=== PATIENT | male | born 1940 | race Caucasian/White ===

== ENCOUNTER 2016-10-22 20:25 | Inpatient (IN) | payer OTHER, MEDICARE ==
[~2016-10-22] VITALS: Ht 170.2 cm; Wt 70.3 kg
--- NOTE | 2016-10-22 20:38 | NUR ---
PER PT DRINKING ON AND OFF SINCE JULY LAST NIGHT DRINKING AND FELL HIT HEAD AND MY BP IS UP DENIES LOC BUT PER FAMILY HE DOES NOT REMEMBER INCIDENT LAST DRINK SOME WINE THIS AM DENIES HI/SI
--- NOTE | 2016-10-22 20:40 | NUR ---
PER PT DENIES SZ WITH DETOX, DENIES DRUG USE
[2016-10-22 20:53] LABS: ABSOLUTE BASOPHIL COUNT 0 /CUMM (0.0-0.2); ABSOLUTE EOSINOPHIL COUNT 0 /CUMM (0.0-0.7); ABSOLUTE GRANULOCYTE CT 7.1 /CUMM (1.4-6.5); ABSOLUTE LYMPH COUNT 1.3 /CUMM (1.2-3.4); ABSOLUTE MONOCYTE COUNT 0.7 /CUMM (0.10-0.60); BASOPHIL % 0.4 % (0.0-2.0); EOSINOPHIL % 0.5 % (0-5); GRANULOCYTE % 77.5 % (42.2-75.2); HEMATOCRIT 41.6 % (42-52); MEAN CORPUSCULAR HGB 33.8 PG (27.0-31.0); MEAN CORPUSCULAR HGB CONC 34.7 G/DL (33.0-37.0); MEAN CORPUSCULAR VOLUME 97.3 FL (80.0-94.0); MEAN PLATELET VOLUME 6.7 FL (7.4-10.4); PLATELET COUNT 193 /CUMM (130-400); RBC DISTRIBUTION WIDTH 12.5 % (11.5-14.5); RED BLOOD CELL CT 4.27 /CUMM (4.70-6.10); WHITE BLOOD CELL COUNT 9.1 /CUMM (4.8-10.8)
--- NOTE | 2016-10-22 20:56 | NUR ---
URINE TRIO SENT
--- NOTE | 2016-10-22 21:03 | NUR ---
PT TO ROOM 2 AT THIS TIME.
[2016-10-22 22:30] VITALS: BP 175/84
--- NOTE | 2016-10-22 22:34 | NUR ---
CONT TO AWAIT EVAL
--- NOTE | 2016-10-22 22:38 | NUR ---
AT BEDSIDE FOR EVAL
[2016-10-22] MEDS ORDERED: CARVEDILOL3.125 M1 PO (23:21)
[2016-10-22] MEDS ORDERED: GABAPENTIN300 M2 PO (23:22)
[2016-10-22] MEDS ORDERED: ALPRAZOLAM ER0.5 MG PO (23:22)
--- NOTE | 2016-10-22 23:29 | ED GENERAL ADULT ---
History of Present Illness General Chief Complaint: ETOH/Drug Related Complaint Stated Complaint: REQUESTING ALCOHOL DETOX,FALL LAST PM,HEAD INJURY Source: patient, family, old records Exam Limitations: no limitations Vital Signs & Intake/Output Vital Signs & Intake/Output Vital Signs Date Time Temp Pulse Resp B/P Pulse O2 O2 Flow FiO2 Ox Delivery Rate 10/23 0018 98.3 78 18 184/87 95 Room Air 10/22 2229 98.1 84 18 175/84 10/22 2229 98.1 84 18 175/84 95 Room Air 10/22 2112 Room Air 10/22 2038 98.2 83 20 177/93 95 ED Intake and Output 10/23 0000 10/22 1200 Intake Total 0 Output Total Balance 0 Intake, Oral 0 Patient 155 lb Weight Allergies Coded Allergies: No Known Allergies (05/02/16) Reconcile Medications Alprazolam (Alprazolam ER) 0.5 MG TAB.ER.24H 1 TAB PO DAILY ANXIETY (Reported ) Carvedilol 3.125 MG TABLET 1 TAB PO BID HTN (Reported) Gabapentin 300 MG CAPSULE 1 CAP PO TID NEUROPATHY (Reported) Triage Note: PER PT DRINKING ON AND OFF SINCE JULY LAST NIGHT DRINKING AND FELL HIT HEAD AND MY BP IS UP DENIES LOC BUT PER FAMILY HE DOES NOT REMEMBER INCIDENT LAST DRINK SOME WINE THIS AM DENIES HI/SI Triage Nurses Notes Reviewed? yes Onset: Just prior to arrival Duration: constant, continues in ED Timing: recent history Injury Environment: home Severity: moderate No Modifying Factors: none HPI: 1 day prior to admission patient slipped and fell striking the back of his head without loss of consciousness. Presents requesting alcohol detox denies withdrawal seizures with prolonged abstinence he shakes. Denies fever chills nausea vomiting diarrhea abdominal pain chest pain shortness of breath headache dysuria rash bleeding suicidal ideation homicidal ideation hallucination. Past History Travel History Traveled to [place] past 21 day No Medical History Any Pertinent Medical History? see below for history Neurological: NONE EENT: NONE Cardiovascular: HTN PACER, STENT Respiratory: NONE Gastrointestinal: NONE Hepatic: NONE Renal: NONE Musculoskeletal: NONE Psychiatric: NONE Endocrine: NONE Pneumonia Vaccine: 04/26/07 Influenza Vaccine: 04/26/07 Surgical History Surgical History: non-contributory Psychosocial History Who do you live with Spouse Services at Home None What is your primary language Bulgarian Tobacco Use: Quit >30 days ago ETOH Use: alcoholic Family History Hx Contributory? No Review of Systems Review of Systems Constitutional: Reports: no symptoms. EENTM: Reports: no symptoms. Respiratory: Reports: no symptoms. Cardiovascular: Reports: no symptoms. GI: Reports: no symptoms. Genitourinary: Reports: no symptoms. Musculoskeletal: Reports: no symptoms. Skin: Reports: no symptoms. Neurological/Psychological: Reports: no symptoms. Hematologic/Endocrine: Reports: no symptoms. Immunologic/Allergic: Reports: no symptoms. All Other Systems: Reviewed and Negative Physical Exam Physical Exam General Appearance: well developed/nourished, alert, awake, anxious, mild distress, thin Head: evidence of injury, tenderness (occipital abrasion not bleedin) Eyes: Bilateral: normal appearance, PERRL, EOMI. Ears, Nose, Throat: normal pharynx, normal ENT inspection Neck: normal inspection, supple, full range of motion, no midline tenderness Respiratory: normal breath sounds, chest non-tender, no respiratory distress, quiet respiration, lungs clear Cardiovascular: regular rate/rhythm, normal peripheral pulses, norml femoral pulses equa Peripheral Pulses: 4+ carotid (R), 4+ carotid (L) Gastrointestinal: normal bowel sounds, soft, non-tender, no organomegaly Back: normal inspection, normal range of motion Extremities: normal inspection, normal capillary refill, normal range of motion, no edema Neurologic/Psych: no motor/sensory deficits, awake, alert, oriented x 3, normal gait, director of state II-XII nml as tested Reflexes: 2+: bicep (R), bicep (L). Skin: normal color Lymphatic: no anterior cervical ken Core Measures ACS in differential dx? No CVA/TIA Diagnosis: No Severe Sepsis Present: No Septic Shock Present: No Progress Differential Diagnoses I considered the following diagnoses in my evaluation of the patient: Alcohol intoxication and dependence intracranial hemorrhage electrolyte abnormality Plan of Care: Orders Procedure Date/time Status Regular Diet 10/23 B Active Pathway - chart 10/23 0002 Active Add-on Test (ER Only) 10/22 2353 Active Patient Data 10/22 2342 Active OXYGEN SETUP (GEN) 10/22 2250 Active Saline Lock 10/22 2250 Active Admit to inpatient 10/22 2250 Active Add-on Test (ER Only) 10/22 2250 Active Vital Signs 10/22 2250 Active CIWA 10/22 2250 Active Activity/Ambulation 10/22 2250 Active EKG 10/22 2250 Active Code Status 10/22 2250 Active Intake & Output 10/22 2057 Active URINE OSMOLALITY 10/22 2049 Complete URINE LYTES, SPOT 10/22 2049 Active URINALYSIS 10/22 2049 Complete URINE DRUG SCREEN FOR ER ONLY 10/22 2046 Active SERUM OSMOLALITY 10/22 2044 Complete LIPASE 10/22 2040 Complete ETHANOL 10/22 2040 Complete COMPREHENSIVE METABOLIC PANEL 10/22 2040 Complete CBC WITHOUT DIFFERENTIAL 10/22 2040 Complete AMYLASE 10/22 2040 Complete Laboratory Tests 10/22/162049: Urine Osmolality 273 L 10/22/162049: Urine Color YEL, Urine Clarity CLEAR, Urine pH 6.0, Ur Specific [place] 1.010, Urine Protein 30 H, Urine Ketones 15 H, Urine Nitrite NEG, Urine Bilirubin NEG , Urine Urobilinogen 0.2, Ur Leukocyte Esterase NEG, Ur Microscopic SEDIMENT EXAMINED, Urine RBC RARE, Ur Epithelial Cells RARE, Urine Hemoglobin MOD H, Urine Glucose NEG 10/22/162049: Urine Opiates Screen < 100.00, Methadone Screen < 40, Barbiturate Screen < 60, Ur Phencyclidine Scrn < 6.00, Amphetamines Screen < 100, U Benzodiazepines Scrn < 85, Urine Cocaine Screen < 50, Urine Cannabis Screen < 5.00, Ur Random Creatinine Pending, Ur Random Sodium Pending, Ur Random Potassium Pending, Fraction Sodium Excret Pending 10/22/162044: Anion Gap 14, Estimated GFR > 60, BUN/Creatinine Ratio 15.7, Glucose 99, Serum Osmolality 268 L, Calcium 9.3, Total Bilirubin 1.4 H, AST 99 H, ALT 64, Alkaline Phosphatase 71, Total Protein 6.9, Albumin 4.5, Globulin 2.4, Albumin/ Globulin Ratio 1.9, Amylase < 30 L, Lipase 73, CBC w Diff NO MAN DIFF REQ, RBC 4.27 L, MCV 97.3 H, MCH 33.8 H, RDW 12.5, MPV 6.7 L, Gran % 77.5 H, Lymphocytes % 13.8 L, Monocytes % 7.8, Eosinophils % 0.5, Basophils % 0.4, Absolute Granulocytes 7.1 H, Absolute Lymphocytes 1.3, Absolute Monocytes 0.7 H, Absolute Eosinophils 0, Absolute Basophils 0, PUBS MCHC 34.7, Serum Alcohol 48.0 Diagnostic Imaging: Viewed by Me: CT Scan. Discussed w/RAD: CT Scan. Radiology Impression: no acute abnormality, no fracture Initial ED EKG: pacemaker rhythm Prior EKG: changed Rhythm Strip: paced Departure Departure Time of Disposition: 2329 Disposition: STILL A PATIENT Condition: Stable Clinical Impression Primary Impression: Hyponatremia syndrome Secondary Impressions: Alcohol dependence Qualifiers: Substance use status: unspecified alcohol-induced disorder Qualified Code: F10.29 - Alcohol dependence with unspecified alcohol-induced disorder Referrals: EDA REINOSO MD (PCP/Family) Departure Forms: Customer Survey General Discharge Information Admission Note Spoke With: SUNDEEP KENNEDY,JOSE ALFREDO Documentation of Exam: Documentation of any treatments & extenuating circumstances including Concerns Regarding Discharge (functional status, medication knowledge or non-compliance, living conditions, etc.) that warrant an admission rather than observation: Serial lab exam serial ciwa medication adjustment psychiatry evaluation alcohol dependence benzodiazepines to prevent withdrawal continuing care discharge planning Critical Care Note Critical Care Note Critical Care Time: non-applicable
--- NOTE | 2016-10-22 23:49 | NUR ---
PT TO CAT SCAN VIA STRETCHER
[2016-10-23] VITALS (15 sets, daily range): BP systolic 120–184; BP diastolic 56–87
--- NOTE | 2016-10-23 00:03 | NUR ---
PT BACK FROM CAT SCAN, ALERT AND ORIENTED. DENIES ANY NEEDS AT THIS TIME. FAMILY REMAINS AT BEDSIDE.
--- NOTE | 2016-10-23 00:18 | CT SCAN REPORT ---
EXAMINATION: CT HEAD WITHOUT CONTRAST CLINICAL INFORMATION: Pain after trauma to head. Fall. COMPARISON: 04/29/2007. TECHNIQUE: Contiguous helical images of the brain were obtained without IV contrast. Multiplanar reconstructions were performed. DLP: 601 mGy-cm. FINDINGS: There are no pathologic extra-axial fluid collections. The lateral, third, fourth ventricles are prominent, but stable, age-appropriate and concordant with the appearance of the sulci. There is no evidence for acute intraparenchymal hemorrhage or infarct. There is periventricular low-attenuation present consistent with small vessel disease. There is neither mass nor mass effect. There is no shift of midline structures. There is a small mucous retention cyst or polyp within the right maxillary sinus. The paranasal sinuses and mastoid air cells are otherwise clear. There are no osseous lesions. There is soft tissue swelling overlying the left vertex. IMPRESSION: No evidence for acute intracranial injury. Stable age-appropriate appearance of the brain. Mild soft tissue swelling overlying the left vertex.
--- NOTE | 2016-10-23 00:21 | NUR ---
HOUSE STAFF AT BEDSIDE. LIN 3.
--- NOTE | 2016-10-23 00:36 | NUR ---
BED ASSIGNMENT 232-1
--- NOTE | 2016-10-23 00:44 | NUR ---
REPORT GIVEN TO LUIS ALFREDO GERMAN 2NA
--- NOTE | 2016-10-23 00:50 | NUR ---
PHARMACY CALLED FOR MED
[2016-10-23] MEDS ORDERED: ASPIRIN81 M4 PO (01:08)
--- NOTE | 2016-10-23 01:35 | History & Physical ---
LESVIA JACOME 10/23/16 0134: General Information and HPI MD Statement: I have seen and personally examined KIKI PICKETT and documented this H&P. The patient is a 76 year old M who presented with a patient stated chief complaint of requesting for alcohol detoxification. Source of Information: patient, family, old records Exam Limitations: no limitations History of Present Illness: This is a 76-year-old gentleman with past medical history significant for hypertension, neuropathy, anxiety, history of syncopy status post AV dual pacemaker 2013, right leg peripheral arterial disease status post angiography in 2015, prostate cancer status post radiotherapy, hyperlipidemia, obesity, metabolic syndrome, syncopal episode in the past, chronic alcohol dependence presented to ER requesting for alcohol detoxification. According to the patient, he reported long-standing history of alcohol abuse. However since July 2016 he has been consuming a lot of alcohol. He usually takes vodka and wine daily. Last drink was at 2:30 PM before coming to hospital. Patient reported drinking 3 bottles of wine last night. After drinking patient slipped and fell, hitting his head on the floor. He denies any loss of consciousness. However he couldn't provide any information about what happened after that. It happenend during middle of night, so he doesn't remember exactly how he fell down. However, his found some bleeding on the floor, and the patient had bloody scab on posterior head. He has mild dizziness/ lightheadedness. Patient reports racing of heart and tremors before coming to the hospital. He denied any nausea, vomiting, diarrhea, sweating episode. He denied any hallucinations. Denies anxiety, agitation. Denies any withdrawal seizures. Denies any suicidal or homicidal ideations. Patient was admitted [facility] in 2006 and 2007 for alcohol detoxification. Never been to rehabilitation program. Patient denies any chest pain, shortness of breath, headache, weakness or sensory changes. gait or vision abnormalities. Reports constipation. Denies any urinary problems. Patient has decreased appetite and oral intake is poor except alcohol drinks. No weight loss. Denies any sick contacts or travel history. History of smoking quitted a few weeks ago. Patient denies any illicit drug abuse Allergies/Medications Allergies: Coded Allergies: No Known Allergies (05/02/16) Compliance With Home Meds: GOOD Past History Travel History Traveled to [place] past 21 day No Medical History Neurological: NONE EENT: NONE Cardiovascular: HTN PACER, STENT Respiratory: NONE Gastrointestinal: NONE Hepatic: NONE Renal: NONE Musculoskeletal: NONE Psychiatric: NONE Endocrine: NONE Pneumonia Vaccine: 04/26/07 Influenza Vaccine: 04/26/07 Surgical History Surgical History: non-contributory Past Family/Social History Psychosocial History Services at Home: None Smoking Status: Former Smoker ETOH Use: alcoholic Illicit Drug Use: denies illicit drug use Review of Systems Review of Systems Constitutional: Denies: chills, diaphoresis, fever, malaise, weakness, unexplained weight loss. EENTM: Denies: double vision, visual changes, epistaxis, nasal pain, throat pain. Cardiovascular: Denies: chest pain, edema, orthopena, palpitations, peripheral edema, syncope. Respiratory: Denies: cough, hemoptysis, orthopnea, short of breath, sputum production. GI: Reports: constipation. Denies: abdominal pain, diarrhea, nausea, vomiting. Genitourinary: Denies: dysuria, frequency, nocturia, urgency. Musculoskeletal: Denies: back pain, joint pain. Skin: Denies: no symptoms. Neurological/Psychological: Reports: anxiety, tremors. Denies: ataxia, confusion, depressed, dementia, emotional problems, headache, numbness, weakness. Exam & Diagnostic Data Last 24 Hrs of Vital Signs/I&O Vital Signs Date Time Temp Pulse Resp B/P Pulse O2 O2 Flow FiO2 Ox Delivery Rate 10/23 0600 98.1 79 16 140/71 10/23 0400 98.6 86 20 180/76 10/23 0250 86 180/76 10/23 0231 98.6 86 20 180/76 10/23 0225 95 Room Air 10/23 0202 98.6 86 20 180/76 97 Room Air 10/23 0058 186/84 10/23 0021 98.3 78 18 184/87 10/23 0018 98.3 78 18 184/87 95 Room Air 10/22 2230 98.1 84 18 175/84 10/22 2230 98.1 84 18 175/84 95 Room Air 10/223 Room Air 10/22 2038 98.2 83 20 177/93 95 Intake & Output 10/23 0800 / 0000 10/22 1600 Intake Total 0 Output Total Balance 0 Intake, Oral 0 Patient 70.307 kg 70.307 kg Weight Physical Exam General Appearance Alert, Oriented X3, Cooperative, No Acute Distress Skin No Rashes, No Breakdown HEENT PERRLA, EOMI, Mucous Membr. moist/pink, scab on post head Neck Supple, No JVD Lymphatic Axillary nl, Cervical nl Cardiovascular Regular Rate, Normal S1, Normal S2, No Murmurs Lungs Clear to Auscultation, Normal Air Movement Abdomen Normal Bowel Sounds, Soft, No Tenderness, No Hepatospenomegaly Neurological Normal Speech, Strength at 5/5 X4 Ext, Normal Tone, Sensation Intact, Cranial Nerves 3-12 NL, Reflexes 2+ Extremities No Clubbing, No Cyanosis, No Edema, Normal Pulses Vascular Normal Pulses Last 24 Hrs of Labs/Ortiz: Laboratory Tests 10/23/16 0116: TSH 1.590, Free T4 1.36 10/22/162049: Urine Osmolality 273 L 10/22/162049: Urine Color YEL, Urine Clarity CLEAR, Urine pH 6.0, Ur Specific [place] 1.010, Urine Protein 30 H, Urine Ketones 15 H, Urine Nitrite NEG, Urine Bilirubin NEG , Urine Urobilinogen 0.2, Ur Leukocyte Esterase NEG, Ur Microscopic SEDIMENT EXAMINED, Urine RBC RARE, Ur Epithelial Cells RARE, Urine Hemoglobin MOD H, Urine Glucose NEG 10/22/162049: Urine Opiates Screen < 100.00, Methadone Screen < 40, Barbiturate Screen < 60, Ur Phencyclidine Scrn < 6.00, Amphetamines Screen < 100, U Benzodiazepines Scrn < 85, Urine Cocaine Screen < 50, Urine Cannabis Screen < 5.00, Ur Random Creatinine 34.3, Ur Random Sodium 35, Ur Random Potassium 36.3, Fraction Sodium Excret 0.6 10/22/162044: Anion Gap 14, Estimated GFR > 60, BUN/Creatinine Ratio 15.7, Glucose 99, Serum Osmolality 268 L, Calcium 9.3, Total Bilirubin 1.4 H, AST 99 H, ALT 64, Alkaline Phosphatase 71, Total Protein 6.9, Albumin 4.5, Globulin 2.4, Albumin/ Globulin Ratio 1.9, Amylase < 30 L, Lipase 73, CBC w Diff NO MAN DIFF REQ, RBC 4.27 L, MCV 97.3 H, MCH 33.8 H, RDW 12.5, MPV 6.7 L, Gran % 77.5 H, Lymphocytes % 13.8 L, Monocytes % 7.8, Eosinophils % 0.5, Basophils % 0.4, Absolute Granulocytes 7.1 H, Absolute Lymphocytes 1.3, Absolute Monocytes 0.7 H, Absolute Eosinophils 0, Absolute Basophils 0, PUBS MCHC 34.7, Serum Alcohol 48.0 Diagnostic Data EKG Results AV paced rhythm, rate 109, QTc 464 Assessment/Plan Assessment: This is a 76-year-old gentleman with past medical history significant for hypertension, neuropathy, anxiety, history of syncopy status post AV dual pacemaker 2013, right leg peripheral arterial disease status post angiography in 2015, prostate cancer status post radiotherapy, hyperlipidemia, obesity, metabolic syndrome, syncopal episode in the past, chronic alcohol dependence presented to ER requesting for alcohol detoxification. Initial V/S: 98.2F VT 83 RR 20 BP 177/93 -> 186/84 Labs: CBC unremarkable, Na 120, K 4.9, BUN/Cr 11/0.7, serum Osm 268, AST/ALT 99/ 64, U Osm 273, UA: positive ketones, protein 30 U Na 35, serum alcohol 48 EKG: AV paced rhythm, rate 109, QTc [address]: No evidence for acute intracranial injury. Stable age-appropriate appearance of the brain. Mild soft tissue swelling overlying the left vertex. Problem list 1. Hypovolemic versus euvolemic hyponatremia 2. Alcohol withdrawal requiring detoxification 3. Status post mechanical fall 4. Hypertension 5. Neuropathy 6. Anxiety 7. Syncope status post a sneaker placement 7. Hyperlipidemia Alcohol withdrawal Patient has long-standing history of alcohol abuse. Admitted in [facility] 2 times regarding alcohol withdrawal. Admitted in ICU for DT and treated with IV Ativan drip. No history of alcohol withdrawal seizures. * Admitted to general med floor for further management. * Monitor vitals closely * CIWA scoring * Ativan 2 mg every 6 hours per CIWA protocol * When necessary Ativan per CIWA score * 1 banana bag * Continue thiamine * Folate * Multivitamin * Psychiatric consult * social consult * Fall precautions * Seizure precautions Hyponatremia Possibly from hypovolemia versus euvolemic hyponatremia. Patient appears to be dry. Vitals were normal. No jugular venous distention or edema. As urine osmolality is greater than 100 and urine sodium greater than 20 more likely hypovolemic hyponatremia with dehydration. However chances of SIADH-as urine osmolality is greater than 100 * Admitted to general med floor for further management * Monitor vitals closely * Monitor sodium levels * Sodium increased from 120 to 122 after 1 L normal saline. * We will do 1 more liter normal saline with banana bag and recheck sodium in the morning. * We will avoid rapid correction. * Goal sodium correction at 8 milliequivalents per 24 hours. * Will rule out SIADH * Will check TSH and free T4 to rule out hypothyroidism * Will check cortisol a.m. to rule out glucocorticoid insufficiency Status post unwitnessed mechanical fall Patient denies any symptoms. CT head negative Fall precautions PT OT Hypertension Continue home dose of carvedilol 3.125 mg twice a day Hyperlipidemia Continue statins Neuropathy Continue gabapentin Anxiety Patient is on Ativan scheduled doses peripheral arterial disease Continue with aspirin Patient is a DNR/DNI Pain pathway DVT prophylaxis subcutaneous Lovenox As Ranked By This Provider Problem List: 1. Hyponatremia syndrome 2. Alcohol dependence Qualifiers Substance use status: unspecified alcohol-induced disorder Qualified Code: F10.29 - Alcohol dependence with unspecified alcohol-induced disorder Core Measures/Miscellaneous Acute Coronary Syndrome ACS Diagnosis: No Cerebrovascular Accident CVA/TIA Diagnosis: No Congestive Heart Failure CHF Diagnosis: No Venous Thromboembolism VTE Risk Factors: Age > 40, Smoking No [facility] VTE prophylaxis d/t: No contraindications No VTE Pharm Prophylaxis d/t: No contraindications VTE Diagnosis: No VTE Type: NONE VTE Confirmed by (Test): NONE Severe Sepsis Severe Sepsis Present: No Septic Shock Septic Shock Present: No Miscellaneous Documentation Attending Case Discussed With: JOSE ALFREDO URBANO MD Primary Care Physician: EDA REINOSO MD Patient sees these Specialists cardiology Level of Patient Care: General Medicine DELMI ARIAS MD 10/23/16 0148: General Information and HPI Allergies/Medications Home Med list Alprazolam (Alprazolam ER) 0.5 MG TAB.ER.24H 1 TAB PO DAILY ANXIETY (Reported ) Reason to Stop at ADM: ATIVAN TAPER Aspirin (Aspirin*) 81 MG TAB.CHEW 1 TAB PO DAILY HEART (Reported) Carvedilol 3.125 MG TABLET 1 TAB PO BID HTN (Reported) Gabapentin 300 MG CAPSULE 1 CAP PO FOUR TIMES A DAY NEUROPATHY (Reported) Rosuvastatin Calcium (Crestor) 20 MG TABLET 1 TAB PO DAILY cholesterol ( Reported) Resident Review Statement Resident Statement: examined this patient, discussed with phd internship, agreed with phd internship, discussed with family, reviewed EMR data (avail), discussed with nursing , reviewed images, amended to note Other Findings: 76 yo male with pmh of HTN, HLD, Rt. leg PAD s/p angiography(2015), Hx of syncope s/p AV dual pacemaker(2013), prostate cancer s/p radiotherapy(2011) and chronic alcohol dependece came to ED requesting alcohol detox. He felt nervous, palpitations and malaise before he came. His last alcohol drink was 1 bottle of wine at 2:30pm on 10/22/16. Previously he made few attempts to stop drinking, but from , he has been drinking vodka 6-10 nips 5-6 days/week. He also had an unwitnessed fall with head injury last night after drinking 3 bottles of wine. It happenend during middle of night, so he doesn't remember exactly how he fell down. However, his found some bleeding on the floor, and the patient had bloody scab on posterior head. He has mild dizziness/lightheadedness. He denies any chest pain, shortness of breath, or headache/pain. He has constipation but denies urinary problems. He has decreased appetite, and oral intake is poor except alcohol drinks. No weight loss. He had long history of alcohol dependence, and he was admited in [facility] times regarding alcohol withdrawal. In , he wad admitted in ICU for impending DT and treate with IV ativan drip. In 2007, he was admitted in comlicated with uncontrolled BP. No hx of alcohol withdrawal seizures. Initial V/S: 98.2F VT 83 RR 20 BP 177/93 -> 186/84 On exam, general: alert, oriented x 3, nervous, not in acute distress, HEENT: trauma noted on Lt. upper post head with scab, PERRLA, EOM intact, mouth: dry mucousa, neck: no JVD, no LAD, cardiovascular: reguar rate, normal S1/S2, no murmurs, lungs: clear to auscutate, abdomen: soft, non tender, normal bowel sounds, no hepatomegaly, Ext: no edema, normal pulses bilaterally, Neurologic: motor 5/5 moving all extremities, cranial nerves grossly intact, fine hand tremors + Labs: CBC unremarkable, Na 120, K 4.9, BUN/Cr 11/0.7, serum Osm 268, AST/ALT 99/ 64, U Osm 273, UA: positive ketones, protein 30 U Na 35, serum alcohol 48 EKG: AV paced rhythm, rate 109, QTc [address]: No evidence for acute intracranial injury. Stable age-appropriate appearance of the brain. Mild soft tissue swelling overlying the left vertex. A/P 1. Hypotonic hyponatremia: Pt appears to be dry/euvolemic. No JVD/edema/ hepatomegaly noted. As U osm is > 100, Emma 35 (>20), more likely to be hypovolemic hyponatremia with dehydration, possibly combined with SIADH. Less likely to be beer potomania as U Osm > 100. Na was increased from 120 to 122 after given 1L of NS fluid. Will give 1 more NS with vitamin (banana bag) and check BEP in 6am. Avoid rapid correction; goal 10-12 mEq / 24 hrs. Will check TSH, fT4, cortisol AM. 2. Alcohol withdrawal: Ativan 2mg q6 with IV ativan per [facility] protocol. 1 banana bag, continue po thiamine, folate, MV. psychiatry/social consult. 3. s/p unwitnessed fall: fall precaution, PT/OT later. 4. HTN: Poorly controlled BP as patient didn't take home medications today. Continue home dose carvediolol 3.125mg bid. Consider increasing the dose or adding ACEinh/ARB/CCB to control BP < 150/90. 5. HLD: c/w lipitor 6. Hx PAD: c/w aspirin 7. Macrocytic anemia: check Vit B12/folate DVT ppx: SC lovenox, pain pathway, DNR/I. SUNDEEP KENNEDY, [facility] 10/23/16 0525: Attending MD Review Statement Attending Statement Attending MD Statement: examined this patient, discuss w/resident/PA/SOCIAL SERVICE DIRECTOR, agreed w/resident/PA/SOCIAL SERVICE DIRECTOR, discussed with family Attending Assessment/Plan: 76 yo M, quit smoking recently, has h/o HTN, alcohol dependence (last detox 2007 , no withdrawal seizures), LBBB, previous alcohol induced cardiomyopathy, syncope/arrhythmia s/p PPM, is here requesting alcohol detox. He reports not feeling well and had an unwitnessed fall last night hitting his head, no LOC. He reports lightheadedness off and on. He has been drinking 5-6 times/ week since Jul 2016. Loss of appetite, poor PO intake. Vitals stable except for hypertension. Tremors+, dry mucous membranes, noted black scab to supero-posterior aspect of the head s/p head strike. Labs: macrocytic anemia, Na 120 --> 122, S. Osm 268, T. Bili 1.4, AST 99, thyroid functions are normal. UA clear. U.osmolality 273, Emma 35, FeNa 0.6, Utox neg. S alcohol 48. Head CT neg, mild soft tissue swelling left vertex. EKG: Paced rhythm. Echo (2007): EF 54%. 1. Alcohol withdrawal. GM admit, CIWA protocol, IV ativan per CIWA, PO ativan 2 mg Q6 scheduled, banana bag, Psych and social work consult. PT eval. 2. Hypovolemic to euvolemic hyponatremia ?acute vs. acute on chronic. This could be secondary to poor PO intake along with malnutrition/ beer potomania (however urine osmolality is usually <100 in such cases) or SIADH. Check orthostats as patient c/o lightheadedness. Given urine sodium is < 40 there is a component of hypovolemia. Patient sodium increased from 120 to 122 after 1 L NS. Will continue IV hydration banana bag in NS and recheck sodium levels in AM. Thyroid functions are normal, check AM cortisol. 3. HTN. Continue carvedilol, can add CCB or ACEI for better control of BP. 4. Transaminitis 2/2 alcohol use. 5. Macrocytic anemia. Thyroid functions are normal. Check B12 and folic acid. DVT ppx Lovenox. DNR/I. DVT ppx Lovenox. DNR/I.
[2016-10-23] MEDS ORDERED: CRESTOR20 M2 PO (01:47)
--- NOTE | 2016-10-23 02:33 | NUR ---
NURSING NOTE: PT ARRIVED TO [facility] VIA WHEELCHAIR @ 0125. FAMILY AT BEDSIDE. PT A&O X3, CALM, AND COOPERATIVE. CIWA SCORE @ 2 FOR HEAD ACHE. SCHEDULED DOSE 2MG PO ATIVAN ADMINISTERED. ADMISSION ASSESSMENT COMPLETED. FALL RISK PRECAUTION PUT IN PLACE. PT ORIENTED TO STAFF, ROOM, AND CALL COHEN. RN WILL CONTINUE TO MONITOR.
--- NOTE | 2016-10-23 04:47 | Admission Certification ---
Admission Certification Certification Statement - As attending physician, I certify that at the time of - admission, based on clinical presentation, severity of - symptoms, need for further diagnostic testing and - therapeutic interventions, and risk of adverse outcomes - without in-hospital treatment, in my clinical assessment, - this patient requires an acute hospital stay for a minimum - of two nights or longer. I have also considered psychsocial - factors such as support system, advanced age, financial - issues, cognitive issues, and failed out-patient treatments, - past re-admission history, safety of patient, and lack of - compliance as applicable. Specific rationale supporting this admission is: Alcohol withdrawal, hyponatremia.
--- NOTE | 2016-10-23 12:15 | PN- Att Addend ---
Attending Addendum Attending Brief Note Patient seen and examined. Resting comfortably not in any acute distress. Denies chest, shortness of breath. Denies cough. Vital Signs Date Time Temp Pulse Resp B/P Pulse O2 O2 Flow FiO2 Ox Delivery Rate 10/23 1041 75 130/80 10/23 0800 98.6 79 18 140/71 / 0718 98.6 79 18 140/71 91 Room Air 10/23 0600 79 140/71 10/23 0600 98.1 79 16 140/71 / 0400 98.6 86 20 180/76 / 0250 86 180/76 04/ 0231 98.6 86 20 180/76 10/23 0225 95 Room Air 10/23 0202 98.6 86 20 180/76 97 Room Air 10/23 0058 186/84 10/23 0021 98.3 78 18 184/87 / 0018 98.3 78 18 184/87 95 Room Air 10/22 2230 98.1 84 18 175/84 10/22 2230 98.1 84 18 175/84 95 Room Air 10/223 Room Air 10/22 2038 98.2 83 20 177/93 95 Gen. appearance: Alert and oriented 3. Mildly tremulous. HEENT: Anicteric, no pallor Heart: S1-S2 regular Lungs: Clear to auscultation bilaterally. Abdomen: Soft, nontender with normal bowel sounds Extremities: No pedal edema Laboratory Tests 10/23/16 0710: Anion Gap 4 L, Estimated GFR > 60, BUN/Creatinine Ratio 15.0, Vitamin B12 867, Folate > 20.0 H, Cortisol AM Sample 12.9 10/23/16 0116: TSH 1.590, Free T4 1.36 10/22/162049: Urine Osmolality 273 L 10/22/162049: Urine Color YEL, Urine Clarity CLEAR, Urine pH 6.0, Ur Specific [place] 1.010, Urine Protein 30 H, Urine Ketones 15 H, Urine Nitrite NEG, Urine Bilirubin NEG , Urine Urobilinogen 0.2, Ur Leukocyte Esterase NEG, Ur Microscopic SEDIMENT EXAMINED, Urine RBC RARE, Ur Epithelial Cells RARE, Urine Hemoglobin MOD H, Urine Glucose NEG 10/22/162049: Urine Opiates Screen < 100.00, Methadone Screen < 40, Barbiturate Screen < 60, Ur Phencyclidine Scrn < 6.00, Amphetamines Screen < 100, U Benzodiazepines Scrn < 85, Urine Cocaine Screen < 50, Urine Cannabis Screen < 5.00, Ur Random Creatinine 34.3, Ur Random Sodium 35, Ur Random Potassium 36.3, Fraction Sodium Excret 0.6 10/22/162044: Anion Gap 14, Estimated GFR > 60, BUN/Creatinine Ratio 15.7, Glucose 99, Serum Osmolality 268 L, Calcium 9.3, Total Bilirubin 1.4 H, AST 99 H, ALT 64, Alkaline Phosphatase 71, Total Protein 6.9, Albumin 4.5, Globulin 2.4, Albumin/ Globulin Ratio 1.9, Amylase < 30 L, Lipase 73, CBC w Diff NO MAN DIFF REQ, RBC 4.27 L, MCV 97.3 H, MCH 33.8 H, RDW 12.5, MPV 6.7 L, Gran % 77.5 H, Lymphocytes % 13.8 L, Monocytes % 7.8, Eosinophils % 0.5, Basophils % 0.4, Absolute Granulocytes 7.1 H, Absolute Lymphocytes 1.3, Absolute Monocytes 0.7 H, Absolute Eosinophils 0, Absolute Basophils 0, PUBS MCHC 34.7, Serum Alcohol 48.0 Problems: 1. Hyponatremia; worsening 2. Alcohol withdrawal syndrome 3. Hypertension. Plan: -In view of his urine osm greater than 100 and elevated urine sodium as well as euvolemic status is condition appears to be consistent with SIADH. -Recommend discontinuing IV fluids and managing with fluid restriction. Repeat serum chemistry this afternoon and then again in 6 hours. -Continue CIWA protocol. -Continue his cardiac regimen. -His is declining referral to an outpatient alcohol rehabilitation program. He wishes to pursue his AA meetings only.
--- NOTE | 2016-10-23 13:20 | Cons- Psychiatry ---
Psychiatric Consult Date of Consult: 10/23/16 Reason for Consult: Alcohol withdrawal Allergies: Coded Allergies: No Known Allergies (05/02/16) Past History Past Medical History Neurological: NONE EENT: NONE Cardiovascular: HTN PACER, STENT Respiratory: NONE Gastrointestinal: NONE Hepatic: NONE Renal: NONE Musculoskeletal: NONE Psychiatric: NONE Endocrine: NONE Blood Disorders: NONE Cancer(s): NONE Past Surgical History Surgical History: non-contributory Assessment/Plan Impression: Chief complaint:" I've been drinking really heavy and I hit my head". Mr. Gilman is 76-year-old , employed, domiciled man with long- standing history of chronic heavy alcohol use, previous medically supervised alcohol withdrawal detoxes, as well as multiple cardiac and vascular problems, presented to [facility] emergency department yesterday evening after he fell and hit his head in the context of heavy alcohol use. Says that he "wanted to get checked out" and that he wanted help with stopping drinking. Head CT performed in the emergency department demonstrate no intracranial abnormalities. However he was noted to have significant hyponatremia and he was admitted to the medical service for electrolyte management as well as alcohol withdrawal. Psychiatry was consult for assistance with alcohol withdrawal. On my interview today Mr. Gilman was exceptionally pleasant and cooperative. He is mildly tremulous. States that he had been "drinking a lot ", which he quantifies at about a "pint or a fifth daily ", beginning mid day and drinking throughout the afternoon and evening. Says he's been drinking to this degree since the beginning of the year and now that it's causing him problems such as falls he would like assistance with quitting. He reports a long-standing history of alcohol use beginning since a teenager, with his greatest period of sobriety about 5-6 years from 2006- 2011 with the assistance of consistent AA program attendance. He has never been in an inpatient alcohol use rehabilitation program. He has sought outpatient treatment at [facility], with my review of the record showing treatment in 2006 with Lorrie Herbert MD as well as in [address] Epps. He denies any past or with Antabuse, though believes he's been treated with naltrexone in the past but not entirely sure. He denies the use of any other substances. He does note historical and a recent depressed mood which he considers to be a trigger for his drinking, though depressed mood is not accompanied by additional symptoms concerning for major depressive disorder. He also denies manic, psychotic, or severely anxious symptoms. He adamantly denies SI or HI. On cognitive examination, he was alert, oriented to his name, to [facility], to the month however he believed today was November 02 rather than 2016. Noted that the upcoming holiday was . He was able to recall 3 out of 3 words immediately however only 1 out of 3 with a few minutes delay, and still was unable to recall the remaining 2 out of 3 despite significant prompting. Spelled the word "world" correctly forward but was unable to spell this correctly backward. Past psychiatric/substance history as noted above. He does have history of medically supervised alcohol detox, however he denies any history of alcohol hallucinosis. Per notes, patient does have a history of previous ICU admissions for concerned of impending delirium tremens. Past medical history as noted above. Outpatient psychotropic medications: I reviewed the [place] prescription monitoring program today. He was last prescribed Xanax 0.5 mg, #30 with no refills on 08/14/2016. Family history of significant alcoholism in his father Social history: Lives with his of many years in [facility]. 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 Has 2 children, son and a daughter, has 4 grandchildren. Reports his as well as his children are quite supportive for him. Review of systems notable for mild headache, mild tremulousness, belching, however denies additional symptoms on review of remaining systems. Mental status exam: Well groomed man, appears slightly older than stated age. Mildly tremulous. No psychomotor agitation or retardation noted. Good eye contact. Speech was within normal limits. His be belching frequently during today's interview. Mood was "okay ", affect was euthymic, full range, non-labile, congruent. Thought processes logical and linear, thought content was within normal limits. Denies SI or HI, denies auditory or visual hallucinations. Cognition noted as above with specific deficits in short-term memory, insight and judgment was fair. Vital signs were reviewed and largely within normal limits. Labs notable for ongoing hyponatremia with most recent sodium at 118. TSH was within normal limits. MCV was slightly elevated at 97. AST and LC were 9964 respectively. His admission BALs 48. His admission U tox was negative. Most recent CIWAS: 0,0,[address]: Negative for intracranial acute abnormality. Assessment: 76-year-old man with long-standing history of alcohol use, qualifying for alcohol use disorder, severe. His examination demonstrates signs and symptoms consistent with acute alcohol withdrawal including mild tremulousness as well as mild cognitive changes including impaired short-term memory. Altered mental status is likely multifactorial with contributions by his hyponatremia as well as alcohol withdrawal. Does not evidence any major co- occurring psychiatric disorders on today's interview or evidence of imminent safety concerns. Recommendations: -No indication for acute inpatient psychiatric hospitalization -Continue treating alcohol withdrawal as you are doing. Ativan taper with ongoing monitoring for autonomic and other signs of withdrawal. Would recommend ongoing thiamine supplementation IV for 2-3 days and then switched to by mouth -Given liver enzyme elevation at this time would defer initiation of naltrexone, however would suggest initiation of this medication as an outpatient once LFTs normalize. -Continue electrolyte correction -Psychiatry and/or social work will attempt to arrange further treatment for alcohol use disorder for this patient. He states that he is interested in returning to outpatient services at [facility], where he has been treated in the past -Would recommend social work consult to help identify further resources for this patient. -Thank you for this consult.
[2016-10-24] VITALS (10 sets, daily range): BP systolic 110–140; BP diastolic 62–80
--- NOTE | 2016-10-24 07:51 | PN- Housestaff ---
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 Patient currently denies any symptom suggestive of alcohol withdrawal. Patient denies any current complaints. Review of Systems Constitutional: Reports: no symptoms. Objective Last 24 Hrs of Vital Signs/I&O Vital Signs Date Time Temp Pulse Resp B/P Pulse O2 O2 Flow FiO2 Ox Delivery Rate 10/24 1200 98.2 77 20 125/80 96 10/24 0922 85 130/70 10/24 0800 98.2 64 16 120/68 10/24 0651 98.2 64 16 120/68 93 Room Air 10/24 0400 98.1 63 18 110/70 10/24 0200 98.1 63 18 110/70 93 Room Air 10/24 0000 98.6 74 20 130/80 10/24 0000 94 Room Air 10/23 2321 98.6 74 20 130/80 94 Room Air 10/23 2200 98.6 74 20 130/80 /09 2114 74 122/60 10/23 2000 96.8 75 20 120/60 / 1904 96.8 75 20 120/60 93 Room Air 10/23 1800 97.6 68 20 120/56 09 1600 97.6 68 20 120/56 / 1443 97.6 68 20 120/56 94 Intake & Output 10/24 1600 10/24 0800 10/24 0000 Intake Total 150 440 Output Total 1220 525 400 Balance -1220 -375 40 Intake, Oral 150 440 Output, Urine 1220 525 400 Physical Exam General Appearance: Alert, Oriented X3, Cooperative, No Acute Distress HEENT: Atraumatic, PERRLA, EOMI, Mucous Membr. moist/pink Cardiovascular: Regular Rate, Normal S1, Normal S2, No Murmurs Lungs: Clear to Auscultation, Normal Air Movement Abdomen: Normal Bowel Sounds, Soft, No Tenderness Neurological: Normal Speech Extremities: No Clubbing, No Cyanosis, No Edema Current Medications: Current Medications Sig/Anamaria Start time Last Medication Dose Route Stop Time Status Admin Acetaminophen 325 MG Q6P PRN 10/23 0130 AC PO Aspirin 81 MG DAILY 10/23 1000 AC 10/24 PO 0921 Atorvastatin Calcium 80 MG 1700 10/23 1700 AC 10/23 PO 1646 Carvedilol 3.125 MG BID 10/23 0041 AC 10/24 PO 09 Enoxaparin Sodium 40 MG DAILY 10/23 1000 AC 10/24 SC 0922 Folic Acid 1 MG DAILY 10/23 1000 AC 10/24 PO 09 Gabapentin 300 MG FOUR TIMES A DAY 10/23 1000 AC 10/24 PO 1339 Ibuprofen 400 MG Q6P PRN 10/23 0130 AC PO Lorazepam 2 MG Q8 10/24 1400 AC 10/24 PO 1339 Lorazepam 0 Q1P PRN 10/23 0115 AC IV Lorazepam 2 MG Q6 10/23 0115 DC 10/24 PO 0532 Multivitamins 1 TAB DAILY 10/23 1000 AC 10/24 PO 921 Thiamine HCl 100 MG DAILY 10/23 1000 AC 10/24 PO 921 Tramadol HCl 25 MG Q6P PRN 10/23 129 AC PO Last 24 Hrs of Lab/Ortiz Results Last 24 Hrs of Labs/Mics: Laboratory Tests 10/24/16 1036: Anion Gap 11, Estimated GFR > 60, BUN/Creatinine Ratio 17.1, CBC w Diff NO MAN DIFF REQ, RBC 4.15 L, MCV 99.8 H, MCH 34.2 H, RDW 13.1, MPV 7.6, Gran % 67.0, Lymphocytes % 19.4 L, Monocytes % 8.8, Eosinophils % 4.3, Basophils % 0.5, Absolute Granulocytes 3.5, Absolute Lymphocytes 1.0 L, Absolute Monocytes 0.5, Absolute Eosinophils 0.2, Absolute Basophils 0, PUBS MCHC 34.3 10/23/16 2205: Anion Gap 8, Estimated GFR > 60, BUN/Creatinine Ratio 16.0 10/23/16 1600: Anion Gap 8, Estimated GFR > 60, BUN/Creatinine Ratio 15.0 Assessment/Plan Assessment: 1.Alcohol withdrawal Patient has long-standing history of alcohol abuse. Admitted in [facility] 2 times because of alcohol withdrawal symptom. hx of admission to ICU for DT, he was treated with IV Ativan drip at that time. No history of alcohol withdrawal seizures. Currently he denies any hallucination, headache, agitation , nausea, vomiting or tremors. * We will decrease Ativan to 2 mg every 8 * When necessary Ativan per CIWA score * Continue thiamine, Folate, and Multivitamin * Psychiatric consult and social consult * Continue fall and seizure precautions 2.Hyponatremia Initially early patient received IV fluid for possible hypovolemic hyponatremia , his sodium level dropped to 118 from 120 .fluid was then DC'd and patient was started on 1 L fluids restriction as a treatment of SIADH. His sodium improved today to 126. Patient has a history of prostate cancer, we will order chest x- ray to exclude lung cancer given his history of smoking. Also we will order liver ultrasound to rule out liver cirrhosis as a possible explanation of SIADH. * Continue 1 L fluid restriction * Follow-up chest x-ray * Follow-up liver ultrasound * Repeat sodium daily until normalized 3.Status post unwitnessed mechanical fall CT head negative for any acute pathology including bleeding. Patient does not remember the fall and seizure cannot be surely exclude. * Continue fall precautions 4.Hypertension * Continue home dose of carvedilol 3.125 mg twice a day 5.Hyperlipidemia * Continue statins 6.Neuropathy * Continue gabapentin 7.Anxiety * Patient is on Ativan scheduled doses 8.peripheral arterial disease * Continue aspirin Regular diet Patient is a DNR/DNI DVT prophylaxis subcutaneous Lovenox Problem List: 1. Hyponatremia syndrome 2. Alcohol dependence Pain Ratin Pain Location: na Pain Goal: Remain pain free Pain Plan: See assessment and plan Tomorrow's Labs & Rationales: BEP to follow-up hyponatremia AGUSTINMINESH Maynard 10/24/16 1129: Attending MD Review Statement Attending Statement Attending MD Statement: examined this patient, discuss w/resident/PA/SHOTBLAST OPERATOR, agreed w/resident/PA/SHOTBLAST OPERATOR, discussed with family, reviewed EMR data (avail), discussed with nursing, discussed with case mgmt, reviewed images Attending Assessment/Plan: 76 yo M, quit smoking recently, has h/o HTN, alcohol dependence (last detox 2007 , no withdrawal seizures), LBBB, previous alcohol induced cardiomyopathy, syncope/arrhythmia s/p PPM, h/o prostate cancer treated with radiaiton, came to ER requesting alcohol detox. He reports not feeling well and had an unwitnessed fall last night hitting his head, no LOC. He reports lightheadedness off and on. He has been drinking 5-6 times/ week since Jul 2016. Loss of appetite, poor PO intake. PLAN 1. Alcohol withdrawal. c/w CIWA protocol, IV ativan per CIWA, f/u Psych and social work consult. PT remigio. 2. Hyponatremia possible SIADH, possible hypovoluemia component, alcohol induced , w/u chest xray, USG liver. fluid restriction 1l. monitor Na level from today and follow trend. f/u imaging. ?urine studies. 3. HTN controlled. Continue carvedilol, bp controlled 4. Transaminitis 2/2 alcohol use. stable LFTs. 5. Macrocytic anemia. Thyroid functions are normal. f/u B12 and folic acid. add supplements, thiamine/folic acid. 6. Cardiomyopathy alcohol induced, stable. 7. h/o syncope s/p PPM stable. DVT ppx Lovenox. DNR/I.
[2016-10-24 10:54] LABS: ABSOLUTE BASOPHIL COUNT 0 /CUMM (0.0-0.2); ABSOLUTE EOSINOPHIL COUNT 0.2 /CUMM (0.0-0.7); ABSOLUTE GRANULOCYTE CT 3.5 /CUMM (1.4-6.5); ABSOLUTE MONOCYTE COUNT 0.5 /CUMM (0.10-0.60); BASOPHIL % 0.5 % (0.0-2.0); EOSINOPHIL % 4.3 % (0-5); HEMATOCRIT 41.4 % (42-52); MEAN CORPUSCULAR HGB 34.2 PG (27.0-31.0); MEAN CORPUSCULAR HGB CONC 34.3 G/DL (33.0-37.0); MEAN CORPUSCULAR VOLUME 99.8 FL (80.0-94.0); MEAN PLATELET VOLUME 7.6 FL (7.4-10.4); PLATELET COUNT 132 /CUMM (130-400); RBC DISTRIBUTION WIDTH 13.1 % (11.5-14.5); RED BLOOD CELL CT 4.15 /CUMM (4.70-6.10); WHITE BLOOD CELL COUNT 5.2 /CUMM (4.8-10.8)
--- NOTE | 2016-10-24 17:46 | RADIOLOGY REPORT ---
EXAMINATION: XR PORTABLE CHEST CLINICAL INFORMATION: Low-sodium. SIADH. History of prostate cancer. COMPARISON: 01/23/15. TECHNIQUE: Portable AP erect view of the chest was obtained. FINDINGS: The left subclavian transvenous bipolar pacemaker remains in stable position. The lungs are clear. No focal consolidation, mass lesion or other abnormality is seen. The pleural spaces are clear. The heart and mediastinal structures are normal. The left shoulder arthroplasty remains in stable position. Degenerative changes are seen in the right shoulder. IMPRESSION: No acute cardiopulmonary disease demonstrated.
--- NOTE | 2016-10-24 18:09 | PN- Psychiatry ---
Assessment/Plan Impression: The patient had an unwitnessed fall at home with possible headstrike. CT shows no acute intracranial pathology. He was admitted for hyponatremia and alcohol withdrawal management. Jarrod is reporting that his triggers for drinking are pain, and feeling overwhelmed, "too much on my plate." He reports that his pain has not been addressed, and that his pain began when he had a left shoulder replacement 3 years ago. He also reports that he is facing the prospect of a replacement of his right shoulder, which is also causing him pain. He reports that he had back surgery approximately one year ago, and this is causing recurrent pain. He reports pain in his groin, as well. He scales his pain at 6/10, and states that he was taking too many tramadol at home. I asked patient if I might speak with his , Sachi, and he assented to this. Her number is [phone]. The patient reported that he has had ten years of sobriety, but he was discharged from [facility] in July,, and was seen by consult, probably for a previous IOP admission in April,. 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 The patient would benefit from enrollment in our IOP program. We will be happy to participate in a family meeting regarding aftercare recommendations. Suggestion: 1. Continue alcohol detox benzodiazepine taper protocol. We suggest using the ' ETOH Detox' order set. 2. Daily thiamine, folate and MVI. 3. Social work consult to assist with aftercare planning. The patient has had at least one IOP in 2012, and has had an AA sponsor. He has not contacted the sponsor. 4. If a family meeting is requested, we will be happy to participate. 5. The patient is reporting that his pain has not been addressed, but he has tramodol, APAP and ibuprofin ordered. Please review pain medication requests with the patient. 6.The patient has 14 steps to climb to his bedroom, and may need PT evaluation, due to weakness. 7. Continue electrolyte correction. 8. We will consider naltrexone therapy, per Dr. Danie Collins' suggestion as an outpatient. We will continue to follow along. Thank-you for asking us to participate in Jarrod's care. Kalmesh Bronson APRN, Pager [phone] Subjective Subjective: I visited this patient today, 10/24/2016, at 1405, in room 232. The patient is alert and oriented 4. He denies auditory, visual or tactile hallucinations, and presents no umer delusions. He denies any feelings of depression, as well as feelings of hopelessness, helplessness or worthlessness. He endorses feelings of anxiety, scaling them at 10/10, and states that there are related to his fear of what will happen in the future, without further explanation. 10/10 would be the most severe. The patient's affect is calm, sad and constricted. He denies suicidal or homicidal ideation. He denies any history of psychiatric diagnosis, treatment, and reports hospitalization for alcohol withdrawal more than 10 years ago. He reports that he wants to stop drinking, and at this point, indicates willingness to come to intensive outpatient program, [facility]. He denies any family history of psychiatric disorders. He reports that he sleeps very well at home, usually 8 hours. He reports that he had 8 hours of sleep last night here in the hospital. The patient reports that his appetite is usually good, eating 2-3 meals per day, "except when I'm drinking." He reports that he started drinking again in July, and that his triggers were body pain, and "too much on my plate." Objective Last 24 Hrs of Vital Signs/I&O Vital Signs Date Time Temp Pulse Resp B/P Pulse O2 O2 Flow FiO2 Ox Delivery Rate 10/24 1403 97.7 72 20 134/62 96 Room Air 10/24 1200 98.2 77 20 125/80 96 10/24 0922 85 130/70 10/24 0800 98.2 64 16 120/68 10/24 0651 98.2 64 16 120/68 93 Room Air 10/24 0400 98.1 63 18 110/70 10/24 0200 98.1 63 18 110/70 93 Room Air 10/24 0000 98.6 74 20 130/80 10/24 0000 94 Room Air 10/23 2321 98.6 74 20 130/80 94 Room Air 10/23 2200 98.6 74 20 130/80 04 2114 74 122/60 10/23 2000 96.8 75 20 120/60 10/23 1904 96.8 75 20 120/60 93 Room Air Intake & Output 10/24 1600 10/24 0800 10/24 0000 Intake Total 400 150 440 Output Total 1220 525 400 Balance -820 -375 40 Intake, Oral 400 150 440 Output, Urine 1220 525 400 Current Medications: Current Medications Sig/Anamaria Start time Last Medication Dose Route Stop Time Status Admin Acetaminophen 325 MG Q6P PRN 10/23 0130 AC PO Aspirin 81 MG DAILY 10/23 1000 AC 10/24 PO 0921 Atorvastatin Calcium 80 MG 1700 10/23 1700 AC 10/23 PO 1646 Carvedilol 3.125 MG BID 10/23 0041 AC 10/24 PO 09 Enoxaparin Sodium 40 MG DAILY 10/23 1000 AC 10/24 SC 0922 Folic Acid 1 MG DAILY 10/23 1000 AC 10/24 PO 0922 Gabapentin 300 MG FOUR TIMES A DAY 10/23 1000 AC 10/24 PO 1339 Ibuprofen 400 MG Q6P PRN 10/23 0130 AC PO Lorazepam 2 MG Q8 10/24 1400 AC 10/24 PO 1339 Lorazepam 0 Q1P PRN 10/23 0115 AC IV Lorazepam 2 MG Q6 10/23 0115 DC 10/24 PO 0532 Multivitamins 1 TAB DAILY 10/23 1000 AC 10/24 PO 0922 Thiamine HCl 100 MG DAILY 10/23 1000 AC 10/24 PO 0922 Tramadol HCl 25 MG Q6P PRN 10/23 013 AC PO Results Last 24 Hrs of Labs/Mics: Laboratory Tests 10/24 10/23 1036 2205 Chemistry Sodium (137 - 145 mmol/L) 126 L 122 L Potassium (3.5 - 5.1 mmol/L) 4.4 4.3 Chloride (98 - 107 mmol/L) 87 L 86 L Carbon Dioxide (22 - 30 mmol/L) 28 28 Anion Gap (5 - 16) 11 8 BUN (9 - 20 mg/dL) 12 16 Creatinine (0.7 - 1.2 mg/dL) 0.7 1.0 Estimated GFR (>60 ml/min) > 60 > 60 BUN/Creatinine Ratio (7 - 25 %) 17.1 16.0 Hematology CBC w Diff NO MAN DIFF REQ WBC (4.8 - 10.8 /CUMM) 5.2 RBC (4.70 - 6.10 /CUMM) 4.15 L Hgb (14.0 - 18.0 G/DL) 14.2 Hct (42 - 52 %) 41.4 L MCV (80.0 - 94.0 FL) 99.8 H MCH (27.0 - 31.0 PG) 34.2 H RDW (11.5 - 14.5 %) 13.1 Plt Count (130 - 400 /CUMM) 132 MPV (7.4 - 10.4 FL) 7.6 Gran % (42.2 - 75.2 %) 67.0 Lymphocytes % (20.5 - 51.1 %) 19.4 L Monocytes % (1.7 - 9.3 %) 8.8 Eosinophils % (0 - 5 %) 4.3 Basophils % (0.0 - 2.0 %) 0.5 Absolute Granulocytes (1.4 - 6.5 /CUMM) 3.5 Absolute Lymphocytes (1.2 - 3.4 /CUMM) 1.0 L Absolute Monocytes (0.10 - 0.60 /CUMM) 0.5 Absolute Eosinophils (0.0 - 0.7 /CUMM) 0.2 Absolute Basophils (0.0 - 0.2 /CUMM) 0 PUBS MCHC (33.0 - 37.0 G/DL) 34.3
--- NOTE | 2016-10-24 18:29 | ULTRASOUND REPORT ---
EXAMINATION: US ABDOMEN LIMITED CLINICAL INFORMATION: Hyponatremia with history of alcohol abuse. Evaluate for cirrhosis.. COMPARISON: None TECHNIQUE: Real-time imaging of the right upper quadrant abdominal viscera. FINDINGS: PANCREAS: Not visualized secondary to bowel gas. LIVER: There is diffuse increased liver parenchymal echogenicity, consistent with hepatic steatosis. The liver is normal in size and contour. No biliary ductal dilatation. No focal hepatic lesion. GALLBLADDER: Normal. The gallbladder is physiologically distended without evidence of stones, sludge, polyps, wall thickening or pericholecystic fluid. COMMON BILE DUCT: Normal in caliber measuring 0.4 cm in diameter. RIGHT KIDNEY: Normal. No hydronephrosis. No renal calculi or focal parenchymal lesions. The kidney measures 11.2 cm in maximum dimension. FREE FLUID: None. IMPRESSION: Hepatic steatosis. No findings to suggest cirrhosis.
[2016-10-25 02:00] VITALS: BP 130/70
[2016-10-25 06:00] VITALS: BP 150/86
[2016-10-25 06:20] VITALS: BP 150/86
--- NOTE | 2016-10-25 07:47 | PN- Housestaff ---
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 Patient denies hallucination, tremors, blurred vision or agitation. He Reports mild headache and anxiety. Review of Systems Constitutional: Reports: see HPI. Objective Last 24 Hrs of Vital Signs/I&O Vital Signs Date Time Temp Pulse Resp B/P Pulse O2 O2 Flow FiO2 Ox Delivery Rate 10/25 1009 110 150/80 10/25 0620 97.9 76 16 150/86 94 Room Air 10/25 0600 97.9 76 16 150/86 10/25 0200 98.7 74 20 130/70 10/25 0000 95 Room Air 10/24 2250 97.5 81 24 124/68 95 Room Air 10/24 2102 76 138/70 10/24 2000 97.9 84 16 128/70 10/24 1600 97.7 70 16 140/66 10/24 1403 97.7 72 20 134/62 96 Room Air 10/24 1200 98.2 77 20 125/80 96 Intake & Output 10/25 1600 10/25 0800 10/25 0000 Intake Total 0 250 Output Total 850 500 Balance -850 -250 Intake, IV 0 10 Intake, Oral 0 240 Number 0 Bowel Movements Output, Urine 850 500 Physical Exam General Appearance: Alert, Oriented X3, Cooperative, No Acute Distress Skin: No Rashes HEENT: Atraumatic, PERRLA, EOMI, Mucous Membr. moist/pink Cardiovascular: Regular Rate, Normal S1, Normal S2, No Murmurs Lungs: Clear to Auscultation, Normal Air Movement Abdomen: Normal Bowel Sounds, Soft, No Tenderness Neurological: Normal Speech Extremities: No Clubbing, No Cyanosis, No Edema Current Medications: Current Medications Sig/Anamaria Start time Last Medication Dose Route Stop Time Status Admin Acetaminophen 325 MG Q6P PRN 10/23 0130 AC PO Aspirin 81 MG DAILY 10/23 999 AC 10/25 PO 1009 Atorvastatin Calcium 80 MG 1700 10/23 1700 AC 10/24 PO 1842 Carvedilol 3.125 MG BID 10/23 0041 AC 10/25 PO 1009 Enoxaparin Sodium 40 MG DAILY 10/23 999 AC 10/25 SC 1009 Folic Acid 1 MG DAILY 10/23 1000 AC 10/25 PO 1009 Gabapentin 300 MG FOUR TIMES A DAY 10/23 1000 AC 10/25 PO 1009 Hydroxyzine HCl 25 MG Q6-PRN PRN 10/25 1100 AC PO Ibuprofen 400 MG Q6P PRN 10/23 0130 AC PO Lorazepam 1 MG Q6 10/25 1200 CANr IV Lorazepam 1 MG Q6 10/25 1200 UNVr PO Lorazepam 0.5 MG Q1 PRN 10/25 1100 UNVr IV Lorazepam 1 MG Q4P PRN 10/25 1000 DC IV Lorazepam 2 MG Q8 10/24 1400 DC 10/25 PO 0600 Lorazepam 0 Q1P PRN 10/23 0115 AC IV Multivitamins 1 TAB DAILY 10/23 1000 AC 10/25 PO 1009 Thiamine HCl 100 MG DAILY 10/23 1000 AC 10/25 PO 1009 Tramadol HCl 25 MG Q6P PRN 10/23 0130 AC PO Last 24 Hrs of Lab/Ortiz Results Last 24 Hrs of Labs/Mics: Laboratory Tests 10/25/16 0635: Anion Gap 9, Estimated GFR > 60, BUN/Creatinine Ratio 18.8 Assessment/Plan Assessment: 1.Alcohol withdrawal Patient has long-standing history of alcohol abuse. Admitted in [facility] twice because of alcohol withdrawal symptom, he has hx of admission to ICU for DT, he was treated with IV Ativan drip at that time. Denies history of alcohol withdrawal seizures. Currently he denies any hallucination, headache, agitation, nausea, vomiting or tremors. * We will decrease Ativan 1 mg oral, every 6 hours scheduled * Invanz 0.5 mg IV every when necessary * Continue thiamine, Folate, and Multivitamin * Psychiatric consult and social consult * Continue fall and seizure precautions * We will try to arrange a meeting with the family 2.Hyponatremia Initially early patient received IV fluid for possible hypovolemic hyponatremia , his sodium level dropped to 118 from 120 .fluid was then DC'd and patient was started on 1 L fluids restriction as a treatment of SIADH. His sodium improved today to 129. CT head on admission excluded any intracranial mass, chest x-ray excluded and a lung mass, ever ultrasound ruled out liver cirrhosis. Most likely his SIADH alcohol abuse. * Continue 1 L fluid restriction * Repeat sodium daily. 3.Status post unwitnessed mechanical fall CT head negative for any acute pathology including bleeding. Patient does not remember the fall and seizure cannot be surely exclude. Continue fall precautions 4.Hyperte nsion Continue home dose of carvedilol 3.125 mg twice a day 5.Hyperlipidemia Continue statins 6.Neuropathy Continue gabapentin 7.Anxiety She is taking 0.5 mg Ativan when necessary at night for anxiety. Per psych we will start patient on hydoxyzine 25 mg PO up to 4X/day as needed for anxiety. 8.peripheral arterial disease Continue aspirin Regular diet Patient is a DNR/DNI DVT prophylaxis subcutaneous Lovenox 3.Status post unwitnessed mechanical fall CT head negative for any acute pathology including bleeding. Patient does not remember the fall and seizure cannot be surely exclude. * Continue fall precautions 4.Hypertension * Continue home dose of carvedilol 3.125 mg twice a day 5.Hyperlipidemia * Continue statins 6.Neuropathy * Continue gabapentin 7.Anxiety She is taking 0.5 mg Ativan when necessary at night for anxiety. * Per psych we will start patient on hydoxyzine 25 mg PO up to 4X/day as needed for anxiety. 8.peripheral arterial disease * Continue aspirin Regular diet Patient is a DNR/DNI DVT prophylaxis subcutaneous Lovenox Problem List: 1. Alcohol dependence Pain Ratin Pain Location: Headache Pain Goal: Remain pain free Pain Plan: See A&P Tomorrow's Labs & Rationales: BEP
[2016-10-25 08:00] VITALS: BP 150/86
[2016-10-25] MEDS ORDERED: VITAMIN B-1100 MG PO (10:03)
[2016-10-25] MEDS ORDERED: FOLIC ACID1 M1 PO (10:03)
[2016-10-25] MEDS ORDERED: ONE DAILY MULT1 EAC2 PO (10:03)
--- NOTE | 2016-10-25 10:11 | Patient Discharge Instructions ---
Discharge Instructions General Discharge Information You were seen/treated for: 1.Hyponatremia most likely becasue of SIADH 2.Alcohol withdrawal Special Instructions: 1.Please follow up with PCP within one week after discharge to address the hyponatremia. 2.Please follow up with psychiatrist as an out patient on 10/31/16. 3.Please continue limiting your daily fluid to 1000 ml per day. Diet Continue normal diet: Yes Recommended Diet: Regular Activity Full Activity/No Limits: Yes Activity Self Limited: Yes Acute Coronary Syndrome Inclusion Criteria At DC or during hospital stay patient has or had the following: ACS DIAGNOSIS No Discharge Core Measures Meds if any: Prescribed or Continued at Discharge Meds if any: NOT Prescribed or Continued at Discharge Congestive Heart Failure Inclusion Criteria At DC or during hospital stay patient has or had the following: CHF DIAGNOSIS No Discharge Core Measures Meds if any: Prescribed or Continued at Discharge Meds if any: NOT Prescribed or Continued at Discharge Cerebrovascular accident Inclusion Criteria At DC or during hospital stay patient has or had the following: CVA/TIA Diagnosis No Discharge Core Measures Meds if any: Prescribed or Continued at Discharge Meds if any: NOT Prescribed or Continued at Discharge Venous thromboembolism Inclusion Criteria VTE Diagnosis No VTE Type NONE VTE Confirmed by (Test) NONE Discharge Core Measures - Per Current guidelines, there needs to be overlap - treatment for the first 5 days of Warfarin therapy. - If discharged on Warfarin prior to 5 days of - overlap therapy, the patient will need to be - assessed for post discharge needs including - *Post discharge parental anticoagulation - *Warfarin and/or parental anticoagulation education - *Follow up date to check INR post discharge At least 5 days overlap therapy as Inpatient No Meds if any: Prescribed or Continued at Discharge Note: Overlap Therapy is Warfarin and Anticoagulant Meds if any: NOT Prescribed or Continued at Discharge
--- NOTE | 2016-10-25 10:43 | PN- Psychiatry ---
Assessment/Plan Impression: 76 M admitted for hyponatremia and alcohol withdrawal management. The patient is c/o anxiety, and we are unable to start an SSRI or SNRI at this time, due to hyponatremia. R/B/SE of hydroxyzine HCl/Atarax reviewed with the patient. He agrees to start the medication, but is generally medication-adverse. He has been scoring zero on CIWA, but has had lorazepam 6 mg PO scheduled in the last 24 hours. Although there is no documented seizure d/o, he has had several medically-supervised alcohol detox admissions, including an ICU admit, due to impending delerium tremens. We suggest tapering lorazepam at a daily reduction of no more than 20% daily. We further suggest a family meeting be organized to review possibilities for aftercare for alcohol use disorder. Case management, social work, pastoral care, medical and nursing may help present the case for [facility]. Suggestion: 1. Continue alcohol detox benzodiazepine taper protocol. We suggest using the ' ETOH Detox' order set. 2. Daily thiamine, folate and MVI. 3. Social work consult to assist with aftercare planning. If a family meeting is requested, we will be happy to participate. 4 The patient is reporting that his pain has not been addressed, but he has tramodol, APAP and ibuprofin ordered. Please review pain medication requests with the patient. 5. Please start hydoxyzine 25 mg PO up to 4X/day as needed for anxiety. 6. Continue electrolyte correction. No SSRI/SNRI until sodium returns to the normal range and is stable. 7. We will consider naltrexone therapy, per Dr. Danie Collins' suggestion as an outpatient. We will continue to follow along with you. Thank-you for asking us to participate in [facility]. Kamlesh Bronson APRN, Pager [phone] Subjective Subjective: A+OX4. Denies AVH; presents no umer delusions Denies SI/HI Sleep adequate and restful
[2016-10-25 14:33] VITALS: BP 130/80
--- NOTE | 2016-10-25 17:27 | NUR ---
PT'S HAS QUESTIONS AT THIS TIME REGARDING PT'S MEDICATIONS. STATED "I TALKED TO OUR PRIMARY DR AND HES NOT HAPPY ABOUT HIM BEING ON THIS NEW MED"- STATING THAT THE ATARAX THAT PT WAS STARTED ON TODAY FOR ANXIETY "IS MAKING HIM TOO SLEEPY ON TOP OF GETTING THE ATIVAN". PT IS DROWSY ARROUSABLE, ORIENTED. PT STATES HE DOES FEEL "SLEEPY BUT THATS WHAT THE ATIVAN DOES, IT MAKES ME CALM"- CALL PLACED TO UNDERWRITING SALES REPRESENTATIVE AT THIS TIME TO COME SPEAK WITH FAMILY. PT CIWA SCORE IS 0 AT THIS TIME. NO ANXIETY/AGITATION PRESENT, CALM AND COOPERATIVE. WILL CONTINUE TO MONITOR.
--- NOTE | 2016-10-25 19:32 | NUR ---
Referral received yesterday morning. This patient is a 76 year old man admitted to the hospital on 10/22/16 with hyponatremia in the setting of alcohol dependence. Patient was placed on the ETOH Withdrawal Prevention Protocol; has been monitored for withdrawal symptoms, and has received 6 mg ativan in the past 24 hours. Mr. Gilman has participated in the IOP previously, and psychiatry is recommending IOP again. I have not seen patient yet, but expect to see him tomorrow and am able to facilitate family meeting if necessary. Have noted significant improvement in physical functioning; home discharge ok. Will meet with patient tomorrow to assess patients interest in aftercare.
[2016-10-25 22:25] VITALS: BP 128/60
[2016-10-26] VITALS (9 sets, daily range): BP systolic 120–132; BP diastolic 60–77
--- NOTE | 2016-10-26 07:59 | PN- Housestaff ---
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 Patient denies hallucination, tremors, blurred vision or agitation. grey roll worker will try to place a family meeting to discuss aftercare for alcohol use disorder. Review of Systems Constitutional: Reports: no symptoms. Objective Last 24 Hrs of Vital Signs/I&O Vital Signs Date Time Temp Pulse Resp B/P Pulse O2 O2 Flow FiO2 Ox Delivery Rate 10/26 1003 85 140/90 10/26 0800 98.1 91 20 120/76 10/26 0643 98.1 91 20 120/76 95 Room Air 10/26 0600 98.8 75 20 132/68 10/26 0400 98.8 75 20 132/68 10/26 0227 98.8 75 20 132/68 93 Room Air 10/26 0200 99.4 87 20 128/60 10/26 0000 99.4 87 20 128/60 10/26 0000 91 Room Air 10/25 2225 99.4 87 20 128/60 91 Room Air 10/25 1433 97.2 95 20 130/80 96 Intake & Output 10/26 1600 10/26 0800 10/26 0000 Intake Total 75 Output Total 500 Balance -500 75 Intake, Oral 75 Output, Urine 500 Physical Exam General Appearance: Alert, Oriented X3, Cooperative, No Acute Distress HEENT: Atraumatic, PERRLA, EOMI, Mucous Membr. moist/pink Cardiovascular: Regular Rate, Normal S1, Normal S2, No Murmurs Lungs: Clear to Auscultation, Normal Air Movement Abdomen: Normal Bowel Sounds, Soft, No Tenderness Neurological: Normal Speech Extremities: No Clubbing, No Cyanosis, No Edema Current Medications: Current Medications Sig/Anamaria Start time Last Medication Dose Route Stop Time Status Admin Acetaminophen 325 MG Q6P PRN 10/23 0130 AC PO Aspirin 81 MG DAILY 10/23 1000 AC 10/26 PO 0957 Atorvastatin Calcium 80 MG 1700 10/23 1700 AC 10/25 PO 1802 Carvedilol 3.125 MG BID 10/23 0041 AC 10/26 PO 1003 Enoxaparin Sodium 40 MG DAILY 10/23 1000 AC 10/26 SC 0958 Folic Acid 1 MG DAILY 10/23 1000 AC 10/26 PO 0957 Gabapentin 300 MG FOUR TIMES A DAY 10/23 1000 AC 10/26 PO 0958 Hydroxyzine HCl 25 MG Q6-PRN PRN 10/25 1100 AC PO Ibuprofen 400 MG Q6P PRN 10/23 0130 AC PO Lorazepam 1 MG Q12H 10/26 1800 AC PO Lorazepam 1 MG Q12 10/26 1000 DC PO Lorazepam 1 MG Q6 10/25 1200 DC 10/26 PO 0542 Lorazepam 0 Q1P PRN 10/23 0115 AC IV Multivitamins 1 TAB DAILY 10/23 1000 AC 10/26 PO 957 Thiamine HCl 100 MG DAILY 10/23 1000 AC 10/26 PO 0958 Tramadol HCl 25 MG Q6P PRN 10/23 0130 AC PO Last 24 Hrs of Lab/Ortiz Results Last 24 Hrs of Labs/Mics: Laboratory Tests 10/26/16 0720: Anion Gap 9, Estimated GFR > 60, BUN/Creatinine Ratio 25.7 H Assessment/Plan Assessment: 1.Alcohol withdrawal Patient has long-standing history of alcohol abuse. Admitted in [facility] twice because of alcohol withdrawal symptom, he has hx of admission to ICU for DT, he was treated with IV Ativan drip at that time. Denies history of alcohol withdrawal seizures. Currently he denies any hallucination, headache, agitation, nausea, vomiting or tremors. * We will decrease Ativan 1 mg oral every 12 hours * Continue 0.5 Ativan mg IV every when necessary * Continue thiamine, Folate, and Multivitamin * We will follow Psychiatric and social recommendations * Continue fall and seizure precautions * We will try to arrange a meeting with the family 2.Hyponatremia Initially early patient received IV fluid for possible hypovolemic hyponatremia , his sodium level dropped to 118 from 120 .fluid was then DC'd and patient was started on 1 L fluids restriction as a treatment of SIADH. His sodium improved.. CT head on admission excluded any intracranial mass, chest x-ray excluded and a lung mass, ever ultrasound ruled out liver cirrhosis. Most likely his SIADH alcohol abuse. Today sodium is 128. * Continue 1 L fluid restriction * Repeat sodium daily. 3.Status post unwitnessed mechanical fall CT head negative for any acute pathology including bleeding. Patient does not remember the fall and seizure cannot be surely exclude. * Continue fall precautions 4.Hypertension * Continue home dose of carvedilol 3.125 mg twice a day 5.Hyperlipidemia * Continue statins 6.Neuropathy * Continue gabapentin 7.Anxiety She is taking 0.5 mg Ativan when necessary at night for anxiety. Per psych we will start patient on hydoxyzine 25 mg PO up to 4X/day as needed for anxiety. * Continue hydoxyzine 25 mg PO up to 4X/day as needed for anxiety 8.peripheral arterial disease * Continue aspirin Regular diet Patient is a DNR/DNI DVT prophylaxis subcutaneous Lovenox Problem List: 1. Alcohol dependence 2. Hyponatremia syndrome 3. SIADH (syndrome of inappropriate ADH production) Pain Ratin Pain Location: na Pain Goal: Remain pain free Pain Plan: See assessment and plan Tomorrow's Labs & Rationales: BEP to follow-up sodium level MINESH VELEZ 10/26/16 1131: Attending MD Review Statement Attending Statement Attending MD Statement: examined this patient, discuss w/resident/PA/CUSTOMER INSIGHT ANALYST, agreed w/resident/PA/CUSTOMER INSIGHT ANALYST, discussed with family, reviewed EMR data (avail), discussed with nursing, discussed with case mgmt, reviewed images Attending Assessment/Plan: 76 yo M, quit smoking recently, has h/o HTN, alcohol dependence (last detox 2007 , no withdrawal seizures), LBBB, previous alcohol induced cardiomyopathy, syncope/arrhythmia s/p PPM, h/o prostate cancer treated with radiaiton, came to ER requesting alcohol detox. He reports not feeling well and had an unwitnessed fall last night hitting his head, no LOC. He reports lightheadedness off and on. He has been drinking 5-6 times/ week since Jul 2016. Loss of appetite, poor PO intake. PLAN 1. Alcohol withdrawal. ativan and added hydroxyzine prn, f/u Psych and social work consult. PT eval. 2. Hyponatremia possible SIADH, possible hypovoluemia component, alcohol induced , w/u including chest xray negative, USG no cirrhosis. fluid restriction 1l, Na improving Na 128 today. 3. HTN controlled. Continue carvedilol, bp controlled 4. Transaminitis 2/2 alcohol use. stable LFTs. 5. Macrocytic anemia. Thyroid functions are normal. f/u B12 and folic acid. added supplements, thiamine/folic acid. 6. Cardiomyopathy alcohol induced, stable. 7. h/o syncope s/p PPM stable. 8. Consulted case management for d/c planning. Patient receptive. Patient explained in detail about risks of alcohol abuse and his sodium levels. Patient advised change in dietary and lifestyle modifications. DVT ppx Lovenox. DNR/I.
--- NOTE | 2016-10-26 19:48 | NUR ---
Met with patient (alone) and also together with patients . Patient is agreeable to outpatient treatment, but not IOP. He is also agreeable to AA meetings. Significant tension noted between patient and . Case discussed with Dewayne Bronson APRN who will be able to assist patient with securing an intake at outpatient psychiatry. Patient still with significant impairments; claimed to have not been out of bed all day, when in fact patient showered and was toileted. feels patient is not at baseline. [facility]rnet plan is [facility].
[2016-10-27 06:51] VITALS: BP 148/80
[2016-10-27] MEDS ORDERED: ATIVAN0.5 M1 PO (08:36)
--- NOTE | 2016-10-27 10:40 | NUR ---
Patient called for increase anxiety. Patient sitting in chair. Patient reports "I don't feel good, I am very shaky and mildly nauseaous". Bp 168/80, P 84. Blood sugar= 129. Assisted patient back to bed. Bed alarm on. Call eaton in reach. At this time Medical team in to assess patient. Per Dr Fontaine, medicate with Hydroxyzine 25 mg PO. Meditation channel placed on low volume. Slow breathing in and out reviewed. Will continue to monitor.
--- NOTE | 2016-10-27 11:05 | PN- Housestaff ---
[facility] 1105: Subjective Follow-up For: #Alcohol detox #Head trauma secondary to Fall #Hyponatremia most likely 2/2 SIADH #Transaminitis #Hypertension, hyperlipidemia #Neuropathy #Anxiety Subjective: Afebrile, hemodynamically stable, saturating well on room air, No acute overnight events reported. Patient denies hallucination, tremors, blurred vision or agitation. This morning patient was agitated. Review of Systems Constitutional: Reports: see HPI. Objective Last 24 Hrs of Vital Signs/I&O Vital Signs Date Time Temp Pulse Resp B/P Pulse O2 O2 Flow FiO2 Ox Delivery Rate 10/27 0932 74 148/80 10/27 0651 98.0 74 20 148/80 95 Room Air 10/26 2249 98.1 74 20 120/60 94 Room Air 10/26 1419 98.2 77 20 130/77 98 Intake & Output 10/27 1600 10/27 0800 10/27 0000 Intake Total 100 Output Total 400 300 Balance -300 -300 Intake, Oral 100 Number 0 Bowel Movements Output, Urine 400 300 Physical Exam General Appearance: Alert, Oriented X3, Cooperative, No Acute Distress HEENT: Atraumatic, PERRLA, EOMI, Mucous Membr. moist/pink Cardiovascular: Regular Rate, Normal S1, Normal S2, No Murmurs Lungs: Clear to Auscultation, Normal Air Movement Abdomen: Normal Bowel Sounds, Soft, No Tenderness Neurological: Normal Speech Extremities: No Clubbing, No Cyanosis, No Edema Current Medications: Current Medications Sig/Anamaria Start time Last Medication Dose Route Stop Time Status Admin Acetaminophen 325 MG Q6P PRN 10/23 0130 AC 10/27 PO 0854 Aspirin 81 MG DAILY 10/23 1000 AC 10/27 PO 0931 Atorvastatin Calcium 80 MG 1700 10/23 1700 AC 10/26 PO 1705 Carvedilol 3.125 MG BID 10/23 0041 AC 10/27 PO 0932 Enoxaparin Sodium 40 MG DAILY 10/23 999 AC 10/27 SC 0930 Folic Acid 1 MG DAILY 10/23 1000 AC 10/27 PO 0932 Gabapentin 300 MG FOUR TIMES A DAY 10/23 999 AC 10/27 PO 0932 Hydroxyzine HCl 25 MG Q6-PRN PRN 10/25 1100 AC 10/27 PO 1051 Ibuprofen 400 MG Q6P PRN 10/23 0130 AC PO Lorazepam 0.5 MG Q12H 10/27 1800 AC PO 11/02 1759 Lorazepam 1 MG Q12H 10/26 1800 DC 10/27 PO 0653 Lorazepam 0 Q1P PRN 10/23 0115 AC IV Multivitamins 1 TAB DAILY 10/23 1000 AC 10/27 PO 0932 Thiamine HCl 100 MG DAILY 10/23 1000 AC 10/27 PO 0932 Tramadol HCl 25 MG Q6P PRN 10/23 0130 AC PO Last 24 Hrs of Lab/Ortiz Results Last 24 Hrs of Labs/Mics: Laboratory Tests 10/27/16 0630: Anion Gap 9, Estimated GFR > 60, BUN/Creatinine Ratio 20.0 Assessment/Plan Assessment: 1.Alcohol withdrawal Patient has long-standing history of alcohol abuse. Admitted in [facility] twice because of alcohol withdrawal symptom, he has hx of admission to ICU for DT, he was treated with IV Ativan drip at that time. Denies history of alcohol withdrawal seizures. Currently he denies any hallucination, headache, agitation, nausea, vomiting or tremors. * We will decrease Ativan 0.5 mg oral every 12 hours * Continue 0.5 Ativan mg IV every when necessary * Continue thiamine, Folate, and Multivitamin * We will follow Psychiatric and social recommendations * Continue fall and seizure precautions * He will [facility] go [facility] 2.Hyponatremia is likely secondary to SIADH Patient was started on 1 L fluids restriction as a treatment of SIADH. His sodium improved. CT head on admission excluded any intracranial mass, chest x- ray excluded and a lung mass, ever ultrasound ruled out liver cirrhosis. Most likely his SIADH alcohol abuse. Today sodium is 130. * Continue 1 L fluid restriction 3.Status post unwitnessed mechanical fall CT head negative for any acute pathology including bleeding. Patient does not remember the fall and seizure cannot be surely exclude. * Continue fall precautions 4.Hypertension * Continue home dose of carvedilol 3.125 mg twice a day 5.Hyperlipidemia * Continue statins 6.Neuropathy * Continue gabapentin 7.Anxiety She is taking 0.5 mg Ativan when necessary at night for anxiety. Per psych we will start patient on hydoxyzine 25 mg PO up to 4X/day as needed for anxiety. Patient was anxious today however he never received hydoxyzine. * Continue hydoxyzine 25 mg PO up to 4X/day as needed for anxiety * Reassess anxiety after 1 hour of taking the medication 8.peripheral arterial disease * Continue aspirin Regular diet Patient is a DNR/DNI DVT prophylaxis subcutaneous Lovenox Problem List: 1. Hyponatremia syndrome 2. Alcohol dependence 3. SIADH (syndrome of inappropriate ADH production) Pain Ratin Pain Location: Headache Pain Goal: Remain pain free Pain Plan: see A&P Tomorrow's Labs & Rationales: no need for labs MINESH VELEZ 10/27/16 1118: Attending MD Review Statement Attending Statement Attending MD Statement: examined this patient, discuss w/resident/PA/TIE LAYER, agreed w/resident/PA/TIE LAYER, discussed with family, reviewed EMR data (avail), discussed with nursing, discussed with case mgmt, reviewed images Attending Assessment/Plan: 76 yo M, quit smoking recently, has h/o HTN, alcohol dependence (last detox 2007 , no withdrawal seizures), LBBB, previous alcohol induced cardiomyopathy, syncope/arrhythmia s/p PPM, h/o prostate cancer treated with radiaiton, came to ER requesting alcohol detox. He reports not feeling well and had an unwitnessed fall last night hitting his head, no LOC. He reports lightheadedness off and on. He has been drinking 5-6 times/ week since Jul 2016. Loss of appetite, poor PO intake. PLAN 1. Alcohol withdrawal. ativan and added hydroxyzine prn, f/u Psych and social work consult. PT eval. 2. Hyponatremia possible SIADH, possible hypovoluemia component, alcohol induced , w/u including chest xray negative, USG no cirrhosis. fluid restriction 1l, Na improving Na 130 today. 3. HTN controlled. Continue carvedilol, bp controlled 4. Transaminitis 2/2 alcohol use. stable LFTs. 5. Macrocytic anemia. Thyroid functions are normal. f/u B12 and folic acid. added supplements, thiamine/folic acid. 6. Cardiomyopathy alcohol induced, stable. 7. h/o syncope s/p PPM stable. 8. Consulted case management for d/c planning. Patient receptive. Patient explained in detail about risks of alcohol abuse and his sodium levels. Patient advised change in dietary and lifestyle modifications. DVT ppx Lovenox. DNR/I.
--- NOTE | 2016-10-27 12:45 | NUR ---
Notified healthcare administration intern Dr. Mccann #[phone] of patient "still reporting anxiety". Investigative Analyst to come and assess patient after afternoon conference. Call eaton in reach. Meditation channel on. Bed alarm on.
--- NOTE | 2016-10-27 12:49 | Discharge Summary ---
Visit Information Visit Dates Admission Date: 10/22/16 Discharge Date: 10/27/16 Hospital Course Course Attending Physician: MINESH VELEZ MD Primary Care Physician: KEMAR KENNEDY,[facility] Hospital Course: This is a 76-year-old gentleman with past medical history significant for hypertension, neuropathy, anxiety, history of syncopy status post AV dual pacemaker 2013, right leg peripheral arterial disease status post angiography in 2015, prostate cancer status post radiotherapy, hyperlipidemia, obesity, metabolic syndrome, syncopal episode in the past, chronic alcohol dependence presented to ER requesting for alcohol detoxification after he had a mechanical fall with head trauma. #Alcohol detoxification Patient has long-standing history of alcohol abuse. Was admitted twice to [facility] for alcohol withdrawal symptom. He has hx of admission to ICU for DT, for which he was treated with IV Ativan drip at that time. Denies history of alcohol withdrawal seizures. on admission he denied any hallucination, headache, agitation, nausea, vomiting or tremors. Patient was treated with Ativan as per [facility] protocol, he was started on thiamine, Folate, and Multivitamin, he was instructed to follow with psychiatric service post discharge. #Anxiety Hhe is taking 0.5 mg Ativan when necessary at night for anxiety. Per psych we will start patient on hydoxyzine 25 mg PO up to 4X/day as needed for anxiety. She was instructed to follow up with psychiatric service post discharge #Hyponatremia is likely secondary to SIADH Patient was started on 1 L fluids restriction as a treatment of SIADH. His sodium improved from 118 on admission to [address] head on admission excluded any intracranial mass, chest x-ray excluded and a lung mass, liver ultrasound ruled out liver cirrhosis. Most likely SIADH is related to alcohol abuse. Patient was instructed to continue 1 L fluid restriction, and to follow with primary care doctor within 1 week of discharge to further address his hyponatremic #Status post unwitnessed mechanical fall CT head negative for any acute pathology including bleeding. Patient does not remember the fall and seizure cannot be surely exclude. We placed patient on fall and seizure precautions throughout the admission #Hypertension, Hyperlipidemia, peripheral arterial disease and Neuropathy * Continued home dose of carvedilol * Continued home dose of statins * Continued home dose of gabapentin * Continued home dose of aspirin For detailed imaging reports please look below Allergies: Coded Allergies: No Known Allergies (05/02/16) Pertinent Lab Results: SERVICE DATE: 10/22/1655-4187-TXIN TYPE: CAT - CT HEAD WO IV CONTRAST EXAMINATION: CT HEAD WITHOUT CONTRAST CLINICAL INFORMATION: Pain after trauma to head. Fall. COMPARISON: 04/29/2007. TECHNIQUE: Contiguous helical images of the brain were obtained without IV contrast. Multiplanar reconstructions were performed. DLP: 601 mGy-cm. FINDINGS: There are no pathologic extra-axial fluid collections. The lateral, third, fourth ventricles are prominent, but stable, age-appropriate and concordant with the appearance of the sulci. There is no evidence for acute intraparenchymal hemorrhage or infarct. There is periventricular low-attenuation present consistent with small vessel disease. There is neither mass nor mass effect. There is no shift of midline structures. There is a small mucous retention cyst or polyp within the right maxillary sinus. The paranasal sinuses and mastoid air cells are otherwise clear. There are no osseous lesions. There is soft tissue swelling overlying the left vertex. IMPRESSION: No evidence for acute intracranial injury. Stable age-appropriate appearance of the brain. Mild soft tissue swelling overlying the left vertex. DICTATED BY: KIKI HARRIS MD DATE/TIME DICTATED:10/23/1611 BLENDER MACHINE OPERATOR:PAUL DATE/TIME TRANSCRIBED:10/23/1611 CONFIDENTIAL, DO NOT COPY WITHOUT APPROPRIATE AUTHORIZATION. SERVICE DATE: 10/24/16-EXAM TYPE: US - US-LIMITED ABDOMEN EXAMINATION: US ABDOMEN LIMITED CLINICAL INFORMATION: Hyponatremia with history of alcohol abuse. Evaluate for cirrhosis.. COMPARISON: None TECHNIQUE: Real-time imaging of the right upper quadrant abdominal viscera. FINDINGS: PANCREAS: Not visualized secondary to bowel gas. LIVER: There is diffuse increased liver parenchymal echogenicity, consistent with hepatic steatosis. The liver is normal in size and contour. No biliary ductal dilatation. No focal hepatic lesion. GALLBLADDER: Normal. The gallbladder is physiologically distended without evidence of stones, sludge, polyps, wall thickening or pericholecystic fluid. COMMON BILE DUCT: Normal in caliber measuring 0.4 cm in diameter. RIGHT KIDNEY: Normal. No hydronephrosis. No renal calculi or focal parenchymal lesions. The kidney measures 11.2 cm in maximum dimension. FREE FLUID: None. IMPRESSION: Hepatic steatosis. No findings to suggest cirrhosis. DICTATED BY: DAVY BAUGH MD DATE/TIME DICTATED:10/24/161823 BLENDER MACHINE OPERATOR:PAUL DATE/TIME TRANSCRIBED:10/24/161823 CONFIDENTIAL, DO NOT COPY WITHOUT APPROPRIATE AUTHORIZATION. SERVICE DATE: 10/24/16-EXAM TYPE: RAD - XRY-PORTABLE CHEST XRA EXAMINATION: XR PORTABLE CHEST CLINICAL INFORMATION: Low-sodium. SIADH. History of prostate cancer. COMPARISON: 01/23/15. TECHNIQUE: Portable AP erect view of the chest was obtained. FINDINGS: The left subclavian transvenous bipolar pacemaker remains in stable position. The lungs are clear. No focal consolidation, mass lesion or other abnormality is seen. The pleural spaces are clear. The heart and mediastinal structures are normal. The left shoulder arthroplasty remains in stable position. Degenerative changes are seen in the right shoulder. IMPRESSION: No acute cardiopulmonary disease demonstrated. DICTATED BY: GIOVANA BLEVINS MD DATE/TIME DICTATED:10/24/161740 BLENDER MACHINE OPERATOR:PAUL DATE/TIME TRANSCRIBED:10/24/161740 CONFIDENTIAL, DO NOT COPY WITHOUT APPROPRIATE AUTHORIZATION. Disposition Summary Disposition Principal Diagnosis: Alcohol detoxification Hyponatremia is likely secondary to SIADH Additional Diagnosis: -Anxiety -Status post unwitnessed mechanical fall -Hypertension, Hyperlipidemia, peripheral arterial disease and Neuropathy Discharge Disposition: home or self care Discharge Instructions General Discharge Information Code Status: Do Not Resucitate/Intubat Patient's Diet: Regular as tolerated Patient's Activity: Full activity as tolerated Follow-Up Instructions/Appts: -Please follow-up with your primary care doctor within 1 week -Please follow-up with psychiatric service as you were scheduled by them Medications at Discharge Discharge Medications: Continue taking these medications: Carvedilol (Carvedilol) 3.125 MG TABLET 1 Tablet ORAL TWICE DAILY Qty = 180 Comments: Last Taken: 10/27/16 Time: 9:30 AM Gabapentin (Gabapentin) 300 MG CAPSULE 1 Capsule ORAL 4 TIMES A DAY Qty = 360 Comments: Last Taken: 10/27/16 Time: 1:30 PM Alprazolam (Alprazolam ER) 0.5 MG TAB.ER.24H 1 Tablet ORAL DAILY Qty = 30 Instructions: Reason to Stop at ADM: ATIVAN TAPER Comments: DID NOT RECEIVE WHILE IN HOSPITAL Aspirin (Aspirin*) 81 MG TAB.CHEW 1 Tablet ORAL DAILY Comments: Last Taken: 10/27/16 Time: 9:30 AM Rosuvastatin Calcium (Crestor) 20 MG TABLET 1 Tablet ORAL DAILY Comments: Last Taken: 10/26/16 Time: 5:00 PM Start taking the following new medications: Folic Acid (Folic Acid) 1 MG TABLET 1 Milligram ORAL DAILY Qty = 30 No Refills Comments: Last Taken: 10/27/16 Time: 9:30 AM Thiamine HCl (Vitamin B-1) 100 MG TABLET 100 Milligram ORAL DAILY Qty = 30 No Refills Comments: Last Taken: 10/27/16 Time: 9:30 AM Multivitamin (One Daily Multivitamin) 1 EACH TABLET 1 Tablet ORAL DAILY Qty = 30 No Refills Comments: Last Taken: 10/27/16 Time: 9:30 AM Hydroxyzine HCl (Hydroxyzine HCl) 25 MG TABLET 25 Milligram ORAL EVERY 6 HOURS NEEDED as needed for ANXIETY Days = 14 No Refills Comments: Last Taken: 10/27/16 Time: 2:30 PM Lorazepam (Ativan) 0.5 MG TABLET 1 Tablet ORAL 2 x Daily as needed as needed for ALCOHOL WITHDRAWAL Qty = 1 No Refills Comments: Last Taken: 10/27/16 Time: 7:00 AM Copies To: EKMAR KENNEDY,EDA
[2016-10-27] MEDS ORDERED: HYDROXYZINE HCL25 M2 PO (13:49)
--- NOTE | 2016-10-27 13:53 | NUR ---
Case discussed with medical team and Psychiatric PROSTHETIC MAKEUP DESIGNER. Intake appointemnt secured at [facility] for Monday. 10/31/16 at 9:00am.
[2016-10-27 13:58] VITALS: BP 150/90
--- NOTE | 2016-10-27 14:45 | NUR ---
Spouse at bedside. Does not feel comfortable taking home at this time. Resident Dr. Moya #[id number] will come to speak with patient and spouse.
--- NOTE | 2016-10-27 15:30 | NUR ---
social services manager Annette called because spouse still not feeling comfortable taking home. Annette to come and speak with them regarding a safe discharge plan. Will continue to monitor.
== END 2016-10-27 17:04 | DRG 644 ==
LOC: ENRESERVTM → ENRESERVDT → ERH 20:25 → ERHI 22:51 → ENPENDDIS 22:51 → 2NA 22:51 → CANBEDREQ 10-23 00:27 → 2NA 10-23 01:21
PROVIDERS: Emergency Medicine; Internal Medicine; ADMIT Student in an Organized Health Care Education/Training Program
DX: E22.2 Syndrome of inappropriate secretion of antidiuretic hormone (principal); F10.231 Alcohol dependence with withdrawal delirium; I42.6 Alcoholic cardiomyopathy; G62.9 Polyneuropathy, unspecified; E86.0 Dehydration; D53.9 Nutritional anemia, unspecified; Y90.2 Blood alcohol level of 40-59 mg/100 ml; R74.0 Nonspecific elevation of levels of transaminase and lactic acid dehydrogenase [LDH]; I10 Essential (primary) hypertension; Z87.891 Personal history of nicotine dependence; Z95.0 Presence of cardiac pacemaker; Z91.81 History of falling; Z66 Do not resuscitate; E78.5 Hyperlipidemia, unspecified; I73.9 Peripheral vascular disease, unspecified; Z79.82 Long term (current) use of aspirin; F41.9 Anxiety disorder, unspecified; Z85.46 Personal history of malignant neoplasm of prostate
CPT/HCPCS: 2NAP; 84133; 84300; ERO; 80307; 81001; 82436; 82570; 93005; 93010; 97112-GO; 97116-GO; 97161-GP; 97530-GO; 99233; G0480; J1650; J3490; J7060